=== PATIENT | male | born 1985 | race Caucasian/White ===

== ENCOUNTER → 2017-07-26 | Outpatient (CLI) | payer OTHER ==
[2017-07-26 13:54] LABS: EOS # 0.1 (0.04-0.40); EOS % 1.3 % (0.0-4.0); HEMATOCRIT 43.4 % (42.0-52.0); HEMOGLOBIN 14.9 g/dL (13.5-18.0); LYMPH# 2.4 (1.50-4.00); MEAN CELL VOLUME 88 fl (78-100); MEAN CORPUSCULAR HEMOGLOBIN 30 pg (27-31); MEAN CORPUSCULAR HGB CONC 34 g/dL (33-37); MEAN PLATELET VOLUME 10.1 fl (7.4-10.4); NEU # 5.7 (1.40-6.50); PLATELET COUNT 252 K/mm3 (130-400); RED BLOOD COUNT 4.92 M/mm3 (4.20-5.60); WHITE BLOOD COUNT 9.2 K/mm3 (4.8-10.8)
[2017-07-26 14:03] LABS: ALBUMIN 4.5 g/dL (3.5-5.0); BUN/CREATININE RATIO 10.8 (6.0-26.0); CALCIUM 9.8 mg/dL (8.4-10.2); TOTAL BILIRUBIN 0.5 mg/dL (0.2-1.3); TOTAL PROTEIN 8.9 g/dL (6.3-8.2)
== END ==
LOC: RAD 13:32
PROVIDERS: Physician Assistant
DX: R10.13 Epigastric pain (principal)
CPT/HCPCS: Q9967

== ENCOUNTER 2020-07-24 20:14 | Emergency (ER) | payer OTHER ==
[2020-07-24] MEDS ORDERED: DESYREL50 MG (20:26)
[2020-07-24] MEDS ORDERED: NORCO 325 MG-51 TA1 PO (22:30)
[2020-07-24] MEDS ORDERED: CEPHALEXIN500 M1 PO (22:30)
[2020-07-24 22:50] VITALS: BP 136/88
== END 2020-07-24 22:51 | disposition home or self-care (01) ==
LOC: ED 20:14
DX: S61.212A Laceration without foreign body of right middle finger without damage to nail, initial encounter (principal); W23.0XXA Caught, crushed, jammed, or pinched between moving objects, initial encounter; Y92.009 Unspecified place in unspecified non-institutional (private) residence as the place of occurrence of the external cause

== ENCOUNTER 2021-02-14 12:33 | Emergency (ER) | payer OTHER ==
[~2021-02-14 12:33] MED LIST: CEPHALEXIN500 M1 PO; DESYREL50 MG; NORCO 325 MG-51 TA1 PO
[2021-02-14 12:43] VITALS: BP 128/91
== END 2021-02-14 13:26 | disposition home or self-care (01) ==
LOC: ED 12:33
DX: M77.12 Lateral epicondylitis, left elbow (principal); F17.290 Nicotine dependence, other tobacco product, uncomplicated; X50.0XXA Overexertion from strenuous movement or load, initial encounter; Y92.096 Garden or yard of other non-institutional residence as the place of occurrence of the external cause; Y99.0 Civilian activity done for income or pay

== ENCOUNTER 2021-09-05 13:24 | Emergency (ER) | payer OTHER ==
[2021-09-05 13:36] VITALS: BP 142/92
[2021-09-05] MEDS ORDERED: NORCO 325 MG-51 TA1 PO (14:16)
[2021-09-05] MEDS ORDERED: CYCLOBENZAPRINE10 M1 PO (14:16)
== END 2021-09-05 14:52 | disposition home or self-care (01) ==
LOC: ED 13:24
DX: M54.30 Sciatica, unspecified side (principal); F17.220 Nicotine dependence, chewing tobacco, uncomplicated; Z28.310 Unvaccinated for COVID-19
CPT/HCPCS: J1885; J2360